=== PATIENT | female | born 2000 | race Caucasian/White ===

== ENCOUNTER 2021-12-10 20:47 | Emergency (ER) | payer MEDICAID ==
[~2021-12-10] VITALS: Ht 160 cm; Wt 88.6 kg
[2021-12-10 20:49] VITALS: BP 142/86
[2021-12-10] MEDS ORDERED: CORTSOL AD (21:26)
== END 2021-12-10 23:57 | disposition home or self-care (01) ==
LOC: EMS 20:50
DX: H60.91 Unspecified otitis externa, right ear (principal)
CPT/HCPCS: 99283; Z7502